=== PATIENT | male | born 1930 | race Caucasian/White ===

== ENCOUNTER 2016-07-29 13:47 | Emergency (ER) | payer MEDICARE, BC ==
--- NOTE | 2016-07-29 14:31 | EDM.PDOC ---
ED HPI GENERAL MEDICAL PROBLEM - General Chief Complaint: Genitourinary Problem Stated Complaint: PT CAN NOT URINATE Time Seen by Provider: 07/29/16 14:30 Source of Information: Reports: Patient History Limitations: Reports: No Limitations - History of Present Illness INITIAL COMMENTS - FREE TEXT/NARRATIVE: History of present illness: []Patient has not been able to urinate since 11 PM today is feeling fullness in his abdomen. He denies any fevers, chills or back pain. This happened once before and he is had a catheter that he went home with. Review of systems: As per history of present illness and below otherwise all systems reviewed and negative. Past medical history: As per history of present illness and as reviewed below otherwise noncontributory. Surgical history: As per history of present illness and as reviewed below otherwise noncontributory. Social history: No reported history of drug or alcohol abuse. Family history: As per history of present illness and as reviewed below otherwise noncontributory. Physical exam: General: Well developed, well nourished in NAD HEENT: Atraumatic, normocephalic, pupils reactive, negative for conjunctival pallor or scleral icterus, mucous membranes moist, throat clear, neck supple, nontender, trachea midline. Lungs: Clear to auscultation, breath sounds equal bilaterally, chest nontender. Heart: S1S2, regular, negative for clicks, rubs, or JVD. Abdomen: Soft, nondistended, lower abdominal tenderness without rebound or guarding. Negative for masses or hepatosplenomegaly. Negative for costovertebral tenderness. Pelvis: Stable nontender. Genitourinary: Deferred. Rectal: Deferred. Extremities: Atraumatic, negative for cords or calf pain. Neurovascular unremarkable. Neuro: Awake, alert, oriented. Cranial nerves II through XII unremarkable. Cerebellum unremarkable. Motor and sensory unremarkable throughout. Exam nonfocal. Diagnostics: []UA Therapeutics: []Castellon placed Impression: []Urinary retention Plan: []DC with Castellon follow-up with [facility] Definitive disposition and diagnosis as appropriate pending reevaluation and review of above. Lower Bladder Pain Score (Numeric/FACES): 4 - Related Data Allergies Allergy/AdvReac Type Severity Reaction Status Date / Time hydroxychloroquine sulfate Allergy Hives Verified 07/29/16 14:05 [From Plaquenil] rivaroxaban [From Xarelto] Allergy Shortness Verified 07/29/16 14:05 of Breath Sulfa (Sulfonamide Allergy Hives Verified 07/29/16 14:05 Antibiotics) Home Meds: Home Meds Aspirin 81 mg PO DAILY 05/21/13 [History] Folic Acid 1 mg PO DAILY 05/21/13 [History] Latanoprost [Xalatan 0.005% Ophth Soln] 1 drop OP BEDTIME 05/21/13 [History] Methotrexate Sodium/PF [Methotrexate 50 mg/2 ml Vial] 8 mg PO Q7D 05/21/13 [ History] Multivitamin [Multi-Vitamin Daily] 1 each PO DAILY 05/21/13 [History] Sennosides [Perdiem] 15 mg PO BID 05/21/13 [History] Torsemide [Demadex] 20 mg PO DAILY 05/21/13 [History] atorvaSTATin [Lipitor] 5 mg PO DAILY 05/21/13 [History] Budesonide/Formoterol [Symbicort 160-4.5 MCG] 2 inh IH BID PRN 09/20/14 [History ] Carvedilol [Coreg] 3.125 mg PO BID 09/20/14 [History] Docusate Sodium [Colace] 100 mg PO BID #60 cap 05/03/15 [Rx] Hydrocort/Neomycin/Polymyxin B [Cortisporin Otic Soln] 10 ml .XX TID #1 bottle 11/11/15 [Rx] Acetaminophen [Tylenol Extra Strength] 1,000 mg PO Q6H PRN #40 tablet 11/16/15 [ Rx] Allopurinol [Zyloprim] 1 tab PO DAILY 11/16/15 [History] Amitriptyline [Elavil] 50 mg PO DAILY 11/16/15 [History] Ibuprofen [Motrin] 800 mg PO Q8H PRN #30 tablet 11/16/15 [Rx] Brimonidine Tartrate [Alphagan P 0.1% Ophth Soln] 1 drop EYERT DAILY 11/17/15 [ History] Neomycin/Polymyxin B Sulf/HC [Xrhnmhar-Okavetvyf-Hz Ear Soln] 3 drop EARRT TID 11/17/15 [History] Acetaminophen/HYDROcodone [[place] 325-5 MG] 1 tab PO Q4H #10 tablet 11/19/15 [Rx] Blood Sugar Diagnostic [Test Strips] 1 each TID #50 strip 11/19/15 [Rx] Blood-Glucose Meter [Blood Glucose Monitor] 1 each TID #1 kit 11/19/15 [Rx] Lancets [Blood Lancets] 1 each TID #50 each 11/19/15 [Rx] Pen Needle, Diabetic [Pen Needle] 1 each TID #50 dis.needle 11/19/15 [Rx] Insulin Glarg,Human.Rec.Analog [LantUS Solostar] 26 units SUBCUT BEDTIME [History] Levothyroxine 0.1 mcg PO ACBREAKFAST 07/29/16 [History] Past Medical History HEENT History: Reports: Cataract, Hard of Hearing, Impaired Vision Other HEENT History: right ear infection Cardiovascular History: Reports: Hypertension, [place] Other Cardiovascular History: chest pains, CHF Respiratory History: Reports: Sleep Apnea Gastrointestinal History: Reports: Chronic Constipation Other Gastrointestinal History: gastroenteritis Genitourinary History: Reports: None Other Genitourinary History: renal failure syndrome Musculoskeletal History: Reports: Back Pain, Chronic Neurological History: Reports: None Other Neuro History: dementia-- no work up done yet Psychiatric History: Reports: None Endocrine/Metabolic History: Reports: Hypothyroidism Hematologic History: Reports: None Immunologic History: Reports: None Oncologic (Cancer) History: Reports: None Dermatologic History: Reports: None - Infectious Disease History Infectious Disease History: Reports: Chicken Pox, Measles, Mumps - Past Surgical History Head Surgeries/Procedures: Reports: None HEENT Surgical History: Reports: Cataract Surgery Cardiovascular Surgical History: Reports: None Male Surgical History: Reports: None Musculoskeletal Surgical History: Reports: Knee Replacement, Other (See Below) Social & Family History - Family History Family Medical History: Noncontributory - Tobacco Use Smoking Status *Q: Never Smoker Years of Tobacco use: 30 Packs/Tins Daily: 1 Used Tobacco, but Quit: Yes Month Tobacco Last Used: 40 yrs ago Second Hand Smoke Exposure: No - Caffeine Use Caffeine Use: Reports: None - Alcohol Use Days Per Week of Alcohol Use: 0 - Recreational Drug Use Recreational Drug Use: No ED ROS GENERAL - Review of Systems Review Of Systems: See Below ED EXAM, RENAL/ - Physical Exam Exam: See Below (See history of present illness) Course - Vital Signs Last Recorded V/S: Last Vital Signs Temp 36.1 C 07/29/16 14:04 Pulse 60 07/29/16 14:04 Resp 18 07/29/16 14:04 BP 164/78 H 07/29/16 14:04 Pulse Ox 93 L 07/29/16 14:04 - Orders/Labs/Meds Orders: Active Orders 24 hr Category Date Time Status Castellon Catheter Insertion [Insert Urinary Catheter] [OM. Care 07/29/16 14:30 Ordered PC] Q24H Urinary Catheter Assessment [RC] ASDIRECTED Care 07/29/16 14:31 Active Labs: Laboratory Tests 07/29/16 Range/Units 15:30 Urine Color YELLOW Urine Appearance CLEAR Urine pH 5.0 (5.0-8.0) Ur Specific [place] 1.010 (1.001-1.035) Urine Protein NEGATIVE (NEGATIVE) mg/dL Urine Glucose (UA) NEGATIVE (NEGATIVE) mg/dL Urine Ketones NEGATIVE (NEGATIVE) mg/dL Urine Occult Blood NEGATIVE (NEGATIVE) Urine Nitrite NEGATIVE (NEGATIVE) Urine Bilirubin NEGATIVE (NEGATIVE) Urine Urobilinogen 0.2 (<2.0) EU/dL Ur Leukocyte Esterase NEGATIVE (NEGATIVE) Urine RBC 0-1 (0-2/HPF) Urine WBC 0-1 (0-5/HPF) Ur Epithelial Cells RARE (NONE-FEW) Urine Bacteria RARE (NEGATIVE) Departure - Departure Time of Disposition: 15:50 Disposition: Home, Self-Care 01 Condition: good Clinical Impression: Urinary retention - Discharge Information Referrals: PCP,None [Primary Care Provider] - Forms: ED Department Discharge Additional Instructions: The following information is given to patients seen in the emergency department who are being discharged to home. This information is to outline your options for follow-up care. We provide all patients seen in our emergency department with a follow-up referral. The need for follow-up, as well as the timing and circumstances, are variable depending upon the specifics of your emergency department visit. If you don't have a primary care physician on staff, we will provide you with a referral. We always advise you to contact your personal physician following an emergency department visit to inform them of the circumstance of the visit and for follow-up with them and/or the need for any referrals to a consulting specialist. The emergency department will also refer you to a specialist when appropriate. This referral assures that you have the opportunity for follow-up care with a specialist. All of these measure are taken in an effort to provide you with optimal care, which includes your follow-up. Under all circumstances we always encourage you to contact your private physician who remains a resource for coordinating your care. When calling for follow-up care, please make the office aware that this follow-up is from your recent emergency room visit. If for any reason you are refused follow-up, please contact the [facility] Emergency Department at and asked to speak to the emergency department charge nurse. Follow-up with Dr. Gonzales. [facility] Specialty Care - Urology [address] [place] [address] - My Orders Last 24 Hours: My Active Orders 07/29/16 14:30 Castellon Catheter Insertion [Insert Urinary Catheter] [OM.PC] Q24H 07/29/16 14:31 Urinary Catheter Assessment [RC] ASDIRECTED - Assessment/Plan Last 24 Hours: My Active Orders 07/29/16 14:30 Castellon Catheter Insertion [Insert Urinary Catheter] [OM.PC] Q24H 07/29/16 14:31 Urinary Catheter Assessment [RC] ASDIRECTED
[2016-07-29 16:22] VITALS: BP 152/67
== END 2016-07-29 16:21 | disposition home or self-care (01) ==
LOC: MW.ED 13:47
DX: R33.9 Retention of urine, unspecified (principal); I25.2 Old myocardial infarction; I11.0 Hypertensive heart disease with heart failure; I50.9 Heart failure, unspecified; E03.9 Hypothyroidism, unspecified; Z98.49 Cataract extraction status, unspecified eye; Z96.659 Presence of unspecified artificial knee joint; Z79.4 Long term (current) use of insulin; Z79.82 Long term (current) use of aspirin; Z79.899 Other long term (current) drug therapy; Z88.2 Allergy status to sulfonamides; Z88.8 Allergy status to other drugs, medicaments and biological substances
CPT/HCPCS: 81001; 99282; 99283

== ENCOUNTER 2016-08-04 16:08 | Emergency (ER) | payer MEDICARE, BC ==
--- NOTE | 2016-08-04 16:31 | EDM.PDOC ---
ED HPI GENERAL MEDICAL PROBLEM - General Chief Complaint: Genitourinary Problem Stated Complaint: CANT USE THE BATHROOM Time Seen by Provider: 08/04/16 16:28 Source of Information: Reports: Patient - History of Present Illness INITIAL COMMENTS - FREE TEXT/NARRATIVE: HISTORY AND PHYSICAL: History of present illness: []Patient presents with urinary retention, he was seen a week ago with similar complaint and has since followed with urology twice over the last week, ultimately catheter was removed and he was able to void on his own over the last 48 hours. However at 11 AM today was last time he urinated he feels as if he has to go and as some urgency and pressure sensation but is unable to urinate. Dr. Fink is noted to have placed him on Flomax 0.8 mg daily at bedtime as well as Cipro 500 mg by mouth twice a day. He has had a prostatectomy previously also performed by [facility]ks in the remote past. He has follow-up scheduled with Dr. Fink for Saturday morning for circumcision as he has a known phimosis No fever nausea vomiting chills sweats denies new medications or over-the- counter decongestants Review of systems: As per history of present illness and below otherwise all systems reviewed and negative. Past medical history: As per history of present illness and as reviewed below otherwise noncontributory. Surgical history: As per history of present illness and as reviewed below otherwise noncontributory. Social history: No reported history of drug or alcohol abuse. Family history: As per history of present illness and as reviewed below otherwise noncontributory. Physical exam: HEENT: Atraumatic, normocephalic, pupils reactive, negative for conjunctival pallor or scleral icterus, mucous membranes moist, throat clear, neck supple, nontender, trachea midline. Lungs: Clear to auscultation, breath sounds equal bilaterally, chest nontender. Heart: S1S2, regular, negative for clicks, rubs, or JVD. Abdomen: Soft, nondistended, nontender. Negative for masses or hepatosplenomegaly. Negative for costovertebral tenderness. Pelvis: Stable nontender. Genitourinary: Deferred. Rectal: Deferred. Extremities: Atraumatic, negative for cords or calf pain. Neurovascular unremarkable. Neuro: Awake, alert, oriented. Cranial nerves II through XII unremarkable. Cerebellum unremarkable. Motor and sensory unremarkable throughout. Exam nonfocal. Diagnostics: []Clear urinalysis from 07/29 on file UA with cultures performed Therapeutics: []Castellon catheter placed with 600 mL of Impression: []Urine retention likely secondary to /or complicated by phimosis Definitive disposition and diagnosis as appropriate pending reevaluation and review of above. penile area Pain Score (Numeric/FACES): 5 - Related Data Allergies Allergy/AdvReac Type Severity Reaction Status Date / Time hydroxychloroquine sulfate Allergy Hives Verified 08/04/16 16:22 [From Plaquenil] rivaroxaban [From Xarelto] Allergy Shortness Verified 08/04/16 16:22 of Breath Sulfa (Sulfonamide Allergy Hives Verified 08/04/16 16:22 Antibiotics) Home Meds: Home Meds Aspirin 81 mg PO DAILY 05/21/13 [History] Folic Acid 1 mg PO DAILY 05/21/13 [History] Latanoprost [Xalatan 0.005% Ophth Soln] 1 drop OP BEDTIME 05/21/13 [History] Methotrexate Sodium/PF [Methotrexate 50 mg/2 ml Vial] 8 mg PO Q7D 05/21/13 [ History] Multivitamin [Multi-Vitamin Daily] 1 each PO DAILY 05/21/13 [History] Torsemide [Demadex] 20 mg PO DAILY 05/21/13 [History] atorvaSTATin [Lipitor] 5 mg PO DAILY 05/21/13 [History] Budesonide/Formoterol [Symbicort 160-4.5 MCG] 2 inh IH BID PRN 09/20/14 [History ] Carvedilol [Coreg] 3.125 mg PO BID 09/20/14 [History] Hydrocort/Neomycin/Polymyxin B [Cortisporin Otic Soln] 10 ml .XX TID #1 bottle 11/11/15 [Rx] Acetaminophen [Tylenol Extra Strength] 1,000 mg PO Q6H PRN #40 tablet 11/16/15 [ Rx] Allopurinol [Zyloprim] 1 tab PO DAILY 11/16/15 [History] Amitriptyline [Elavil] 50 mg PO DAILY 11/16/15 [History] Ibuprofen [Motrin] 800 mg PO Q8H PRN #30 tablet 11/16/15 [Rx] Brimonidine Tartrate [Alphagan P 0.1% Ophth Soln] 1 drop EYERT DAILY 11/17/15 [ History] Neomycin/Polymyxin B Sulf/HC [Rpimltmi-Rmnefliei-Pn Ear Soln] 3 drop EARRT TID 11/17/15 [History] Acetaminophen/HYDROcodone [[place] 325-5 MG] 1 tab PO Q4H #10 tablet 11/19/15 [Rx] Blood Sugar Diagnostic [Test Strips] 1 each TID #50 strip 11/19/15 [Rx] Blood-Glucose Meter [Blood Glucose Monitor] 1 each TID #1 kit 11/19/15 [Rx] Lancets [Blood Lancets] 1 each TID #50 each 11/19/15 [Rx] Pen Needle, Diabetic [Pen Needle] 1 each TID #50 dis.needle 11/19/15 [Rx] Insulin Glarg,Human.Rec.Analog [LantUS Solostar] 26 units SUBCUT BEDTIME [History] Levothyroxine 0.1 mcg PO ACBREAKFAST 07/29/16 [History] Ciprofloxacin [Ciprofloxacin HCl] 500 mg PO BID 08/04/16 [History] Fluticasone Propionate [Children's Flonase Allergy Rlf] 2 spray NS DAILY [History] Lisinopril 5 mg PO DAILY 08/04/16 [History] Losartan [Cozaar] 100 mg PO DAILY 08/04/16 [History] Tamsulosin [Flomax] 2 tab PO BEDTIME 08/04/16 [History] Past Medical History HEENT History: Reports: Cataract, Hard of Hearing, Impaired Vision Other HEENT History: right ear infection Cardiovascular History: Reports: Hypertension, [place] Other Cardiovascular History: chest pains, CHF Respiratory History: Reports: Sleep Apnea Gastrointestinal History: Reports: Chronic Constipation Other Gastrointestinal History: gastroenteritis Genitourinary History: Reports: None Other Genitourinary History: renal failure syndrome Musculoskeletal History: Reports: Back Pain, Chronic Neurological History: Reports: None Other Neuro History: dementia-- no work up done yet Psychiatric History: Reports: None Endocrine/Metabolic History: Reports: Hypothyroidism Hematologic History: Reports: None Immunologic History: Reports: None Oncologic (Cancer) History: Reports: None Dermatologic History: Reports: None - Infectious Disease History Infectious Disease History: Reports: Chicken Pox, Measles, Mumps - Past Surgical History Head Surgeries/Procedures: Reports: None HEENT Surgical History: Reports: Cataract Surgery Cardiovascular Surgical History: Reports: None Male Surgical History: Reports: None Musculoskeletal Surgical History: Reports: Knee Replacement, Other (See Below) Social & Family History - Family History Family Medical History: Noncontributory - Tobacco Use Smoking Status *Q: Never Smoker Years of Tobacco use: 30 Packs/Tins Daily: 1 Used Tobacco, but Quit: Yes Month Tobacco Last Used: 40 yrs ago Second Hand Smoke Exposure: No - Caffeine Use Caffeine Use: Reports: None - Alcohol Use Days Per Week of Alcohol Use: 0 - Recreational Drug Use Recreational Drug Use: No ED ROS GENERAL - Review of Systems Review Of Systems: ROS reveals no pertinent complaints other than HPI. ED EXAM, GENERAL - Physical Exam Exam: See Below Course - Vital Signs Last Recorded V/S: Last Vital Signs Temp 36.4 C 08/04/16 16:22 Pulse 66 08/04/16 16:22 Resp 20 08/04/16 16:22 BP 150/67 H 08/04/16 16:22 Pulse Ox 93 L 08/04/16 16:22 - Orders/Labs/Meds Orders: Active Orders 24 hr Category Date Time Status CULTURE URINE [RM] Stat Lab 08/04/16 16:47 Ordered UA W/MICROSCOPIC [URIN] Stat Lab 08/04/16 16:47 Ordered Departure - Departure Time of Disposition: 16:48 Disposition: Home, Self-Care 01 Condition: Good Clinical Impression: Urinary retention - Discharge Information Referrals: PCP,None [Primary Care Provider] - Forms: ED Department Discharge Additional Instructions: Follow-up with Dr. Fink urologist as scheduled Saturday for continued management Return if symptoms persist or worsen in the interim for new concerning symptoms develop Continue all current medications as prescribed The following information is given to patients seen in the emergency department who are being discharged to home. This information is to outline your options for follow-up care. We provide all patients seen in our emergency department with a follow-up referral. The need for follow-up, as well as the timing and circumstances, are variable depending upon the specifics of your emergency department visit. If you don't have a primary care physician on staff, we will provide you with a referral. We always advise you to contact your personal physician following an emergency department visit to inform them of the circumstance of the visit and for follow-up with them and/or the need for any referrals to a consulting specialist. The emergency department will also refer you to a specialist when appropriate. This referral assures that you have the opportunity for follow-up care with a specialist. All of these measure are taken in an effort to provide you with optimal care, which includes your follow-up. Under all circumstances we always encourage you to contact your private physician who remains a resource for coordinating your care. When calling for follow-up care, please make the office aware that this follow-up is from your recent emergency room visit. If for any reason you are refused follow-up, please contact the [facility] emergency department at and asked to speak to the emergency department charge nurse. - My Orders Last 24 Hours: My Active Orders 08/04/16 16:47 CULTURE URINE [RM] Stat UA W/MICROSCOPIC [URIN] Stat - Assessment/Plan Last 24 Hours: My Active Orders 08/04/16 16:47 CULTURE URINE [RM] Stat UA W/MICROSCOPIC [URIN] Stat
[2016-08-04 17:14] VITALS: BP 136/69
== END 2016-08-04 17:03 | disposition home or self-care (01) ==
LOC: MW.ED 16:08
DX: R33.9 Retention of urine, unspecified (principal); I11.0 Hypertensive heart disease with heart failure; I25.2 Old myocardial infarction; H54.7 Unspecified visual loss; E03.9 Hypothyroidism, unspecified; Z88.2 Allergy status to sulfonamides; Z79.899 Other long term (current) drug therapy; Z79.82 Long term (current) use of aspirin; Z88.8 Allergy status to other drugs, medicaments and biological substances; Z79.4 Long term (current) use of insulin; Z98.49 Cataract extraction status, unspecified eye; Z96.659 Presence of unspecified artificial knee joint; Z96.0 Presence of urogenital implants; I50.9 Heart failure, unspecified
CPT/HCPCS: 51702; 81001; 87086; 99283

== ENCOUNTER 2018-05-01 22:45 | Emergency (ER) | payer MEDICARE, BC ==
[2018-05-01 22:58] VITALS: BP 175/69
--- NOTE | 2018-05-01 23:03 | EDM.PDOC ---
ED HPI GENERAL MEDICAL PROBLEM - General Chief Complaint: Genitourinary Problem Stated Complaint: PT IS POSSIBLY BLEEDING FROM HIS BLADDER Time Seen by Provider: 05/01/18 22:55 - History of Present Illness INITIAL COMMENTS - FREE TEXT/NARRATIVE: HISTORY AND PHYSICAL: History of present illness: The patient is an 87-year-old male with a history of hypertension hypothyroidism hypercholesterolemia who had a TURP procedure done many years ago and has had no issues with his bladder or prostate but knows Dr. Gonzales and has followed with him in the past and also goes to her infusion center for rheumatoid arthritis medications and presents tonight with passing blood in his urine for the first time. The patient says that earlier today he had a normal day and has had no fevers chills abdominal pain nausea vomiting shortness of breath or fevers. He's had no flank pain. He's had normal urine output all day and this evening when he went to go to the bathroom he passed blood. There were no clots and he does not feel like he has has any urinary retention. He has no suprapubic tenderness and he said that when he passed the urine with the blood it was not painful. He has no testicular pain or swelling and actually has no systemic complaints currently and is only here for passing the blood in the urine. The patient only takes an aspirin at home and no other anticoagulation therapy. Review of systems: As per history of present illness and below otherwise all systems reviewed and negative. Past medical history: As per history of present illness and as reviewed below otherwise noncontributory. Surgical history: As per history of present illness and as reviewed below otherwise noncontributory. Social history: No reported history of drug or alcohol abuse. Family history: As per history of present illness and as reviewed below otherwise noncontributory. Physical exam: General: Well-developed well-nourished overweight man who is nontoxic and hard of hearing. Vital signs are noted by me HEENT: Atraumatic, normocephalic,negative for conjunctival pallor or scleral icterus, mucous membranes moist, throat clear, neck supple, nontender, trachea midline. Lungs: Clear to auscultation, breath sounds equal bilaterally, chest nontender. Heart: S1S2, regular rate and rhythm no overt murmurs Abdomen: Soft, nondistended, nontender. Negative for masses or hepatosplenomegaly. Negative for costovertebral tenderness. There is no tenderness in the suprapubic area Pelvis: Stable nontender. Genitourinary: Testicles are descended bilaterally and there is no evidence of any skin changes or erythema seen in the region. There is a small area of blood in his underwear which is dark in color and dried. Rectal: Deferred. Extremities: Atraumatic, negative for cords or calf pain. Neurovascular unremarkable. Neuro: Awake, alert, oriented. Cranial nerves II through XII unremarkable. Cerebellum unremarkable. Motor and sensory unremarkable throughout. Exam nonfocal. Diagnostics: CBC CMP INR UA with reflex culture bladder scan Therapeutics: Patient's urine here in the ED is clear yellow and we will do a post void residual bladder scan. Bladder scan revealed a post void residual of 43 mL All testing results were discussed with the patient including the BUN and creatinine are 42/1.6. I do not have a baseline for that and is white cell count is slightly elevated at 13. I will discuss this case with Dr. Gonzales 2344: Case was discussed with Dr. Gonzales and he is aware of the lab tests and will follow him in the clinic and does not want to do any outpatient labs. Patient is aware of this and we will discharge home. Impression: Episode of hematuria resolved Definitive disposition and diagnosis as appropriate pending reevaluation and review of above. no pain Pain Score (Numeric/FACES): 0 - Related Data Allergies Allergy/AdvReac Type Severity Reaction Status Date / Time hydroxychloroquine sulfate Allergy Hives Verified 08/04/16 16:22 [From Plaquenil] rivaroxaban [From Xarelto] Allergy Shortness Verified 08/04/16 16:22 of Breath Sulfa (Sulfonamide Allergy Hives Verified 08/04/16 16:22 Antibiotics) Home Meds: Home Meds Aspirin 81 mg PO DAILY 05/21/13 [History] Folic Acid 1 mg PO DAILY 05/21/13 [History] Latanoprost [Xalatan 0.005% Ophth Soln] 1 drop OP BEDTIME 05/21/13 [History] Methotrexate Sodium/PF [Methotrexate 50 mg/2 ml Vial] 8 mg PO Q7D 05/21/13 [ History] Multivitamin [Multi-Vitamin Daily] 1 each PO DAILY 05/21/13 [History] Torsemide [Demadex] 20 mg PO DAILY 05/21/13 [History] atorvaSTATin [Lipitor] 5 mg PO DAILY 05/21/13 [History] Budesonide/Formoterol [Symbicort 160-4.5 MCG] 2 inh IH BID PRN 09/20/14 [History ] Carvedilol [Coreg] 3.125 mg PO BID 09/20/14 [History] Hydrocort/Neomycin/Polymyxin B [Cortisporin Otic Soln] 10 ml .XX TID #1 bottle 11/11/15 [Rx] Acetaminophen [Tylenol Extra Strength] 1,000 mg PO Q6H PRN #40 tablet 11/16/15 [ Rx] Allopurinol [Zyloprim] 1 tab PO DAILY 11/16/15 [History] Amitriptyline [Elavil] 50 mg PO DAILY 11/16/15 [History] Ibuprofen [Motrin] 800 mg PO Q8H PRN #30 tablet 11/16/15 [Rx] Brimonidine Tartrate [Alphagan P 0.1% Ophth Soln] 1 drop EYERT DAILY 11/17/15 [ History] Neomycin/Polymyxin B Sulf/HC [Hzgtmnrk-Eynqceidd-Im Ear Soln] 3 drop EARRT TID 11/17/15 [History] Acetaminophen/HYDROcodone [[place] 325-5 MG] 1 tab PO Q4H #10 tablet 11/19/15 [Rx] Blood Sugar Diagnostic [Test Strips] 1 each TID #50 strip 11/19/15 [Rx] Blood-Glucose Meter [Blood Glucose Monitor] 1 each TID #1 kit 11/19/15 [Rx] Lancets [Blood Lancets] 1 each TID #50 each 11/19/15 [Rx] Pen Needle, Diabetic [Pen Needle] 1 each TID #50 dis.needle 11/19/15 [Rx] Insulin Glarg,Human.Rec.Analog [LantUS Solostar] 26 units SUBCUT BEDTIME [History] Levothyroxine 0.1 mcg PO ACBREAKFAST 07/29/16 [History] Ciprofloxacin [Ciprofloxacin HCl] 500 mg PO BID 08/04/16 [History] Fluticasone Propionate [Children's Flonase Allergy Rlf] 2 spray NS DAILY [History] Lisinopril 5 mg PO DAILY 08/04/16 [History] Losartan [Cozaar] 100 mg PO DAILY 08/04/16 [History] Tamsulosin [Flomax] 2 tab PO BEDTIME 08/04/16 [History] Past Medical History HEENT History: Reports: Cataract, Hard of Hearing, Impaired Vision Other HEENT History: right ear infection Cardiovascular History: Reports: Hypertension, OR Other Cardiovascular History: chest pains, CHF Respiratory History: Reports: Sleep Apnea Other Respiratory History: on O2 inhalation @ home 3lpm @ night Gastrointestinal History: Reports: Chronic Constipation Other Gastrointestinal History: gastroenteritis Genitourinary History: Reports: None Other Genitourinary History: renal failure syndrome Musculoskeletal History: Reports: Back Pain, Chronic Neurological History: Reports: None Other Neuro History: dementia-- no work up done yet Psychiatric History: Reports: None Endocrine/Metabolic History: Reports: Hypothyroidism Hematologic History: Reports: None Immunologic History: Reports: None Oncologic (Cancer) History: Reports: None Dermatologic History: Reports: None - Infectious Disease History Infectious Disease History: Reports: Chicken Pox, Measles, Mumps - Past Surgical History Head Surgeries/Procedures: Reports: None HEENT Surgical History: Reports: Cataract Surgery Cardiovascular Surgical History: Reports: None Male Surgical History: Reports: None Musculoskeletal Surgical History: Reports: Knee Replacement, Other (See Below) Social & Family History - Family History Family Medical History: Noncontributory - Caffeine Use Caffeine Use: Reports: None ED ROS GENERAL - Review of Systems Review Of Systems: ROS reveals no pertinent complaints other than HPI. ED EXAM, GENERAL - Physical Exam Exam: See Below (See dictation) Course - Vital Signs Last Recorded V/S: Last Vital Signs Temp 36.3 C 05/01/18 22:55 Pulse 68 05/01/18 22:55 Resp 21 H 05/01/18 22:55 BP 175/69 H 05/01/18 22:55 Pulse Ox 94 L 05/01/18 22:55 - Orders/Labs/Meds Orders: Active Orders 24 hr Category Date Time Status Bladder Scan [RC] ASDIRECTED Care 05/01/18 23:02 Active Labs: Laboratory Tests 05/01/18 05/01/18 05/01/18 Range/Units 23:05 23:12 23:12 WBC 13.51 H (4.0-11.0) K/uL RBC 3.73 L (4.50-5.90) M/uL Hgb 11.9 L (13.0-17.0) g/dL Hct 35.8 L (38.0-50.0) % MCV 96.0 (80.0-98.0) fL MCH 31.9 (27.0-32.0) pg MCHC 33.2 (31.0-37.0) g/dL RDW Std Deviation 51.6 (28.0-62.0) fl RDW Coeff of Linus 15 (11.0-15.0) % Plt Count 215 (150-400) K/uL MPV 10.00 (7.40-12.00) fL Neut % (Auto) 32.9 L (48.0-80.0) % Lymph % (Auto) 55.7 H (16.0-40.0) % [place] % (Auto) 6.2 (0.0-15.0) % Eos % (Auto) 5.0 (0.0-7.0) % Baso % (Auto) 0.2 (0.0-1.5) % Neut # (Auto) 4.4 (1.4-5.7) K/uL Lymph # (Auto) 7.5 H (0.6-2.4) K/uL [place] # (Auto) 0.8 (0.0-0.8) K/uL Eos # (Auto) 0.7 (0.0-0.7) K/uL Baso # (Auto) 0.0 (0.0-0.1) K/uL Nucleated RBC % 0.0 /100WBC Nucleated RBCs # 0 K/uL INR 1.06 Sodium (136-148) mmol/L Potassium (3.5-5.1) mmol/L Chloride (98-107) mmol/L Carbon Dioxide (21.0-32.0) mmol/L BUN (7.0-18.0) mg/dL Creatinine (0.8-1.3) mg/dL Est Cr Clr Drug Dosing mL/min Estimated GFR (MDRD) ml/min Glucose (74-106) mg/dL Calcium (8.5-10.1) mg/dL Total Bilirubin (0.2-1.0) mg/dL AST (15-37) IU/L ALT (14-63) IU/L Alkaline Phosphatase (46-116) U/L Total Protein (6.4-8.2) g/dL Albumin (3.4-5.0) g/dL Globulin (2.6-4.0) g/dL Albumin/Globulin Ratio (0.9-1.6) Urine Color YELLOW Urine Appearance CLEAR Urine pH 5.5 (5.0-8.0) Ur Specific [place] 1.020 (1.001-1.035) Urine Protein NEGATIVE (NEGATIVE) mg/dL Urine Glucose (UA) NEGATIVE (NEGATIVE) mg/dL Urine Ketones NEGATIVE (NEGATIVE) mg/dL Urine Occult Blood NEGATIVE (NEGATIVE) Urine Nitrite NEGATIVE (NEGATIVE) Urine Bilirubin NEGATIVE (NEGATIVE) Urine Urobilinogen 0.2 (<2.0) EU/dL Ur Leukocyte Esterase NEGATIVE (NEGATIVE) 05/01/18 Range/Units 23:12 WBC (4.0-11.0) K/uL RBC (4.50-5.90) M/uL Hgb (13.0-17.0) g/dL Hct (38.0-50.0) % MCV (80.0-98.0) fL MCH (27.0-32.0) pg MCHC (31.0-37.0) g/dL RDW Std Deviation (28.0-62.0) fl RDW Coeff of Linus (11.0-15.0) % Plt Count (150-400) K/uL MPV (7.40-12.00) fL Neut % (Auto) (48.0-80.0) % Lymph % (Auto) (16.0-40.0) % [place] % (Auto) (0.0-15.0) % Eos % (Auto) (0.0-7.0) % Baso % (Auto) (0.0-1.5) % Neut # (Auto) (1.4-5.7) K/uL Lymph # (Auto) (0.6-2.4) K/uL [place] # (Auto) (0.0-0.8) K/uL Eos # (Auto) (0.0-0.7) K/uL Baso # (Auto) (0.0-0.1) K/uL Nucleated RBC % /100WBC Nucleated RBCs # K/uL INR Sodium 138 (136-148) mmol/L Potassium 4.6 (3.5-5.1) mmol/L Chloride 104 (98-107) mmol/L Carbon Dioxide 24.3 (21.0-32.0) mmol/L BUN 42 H (7.0-18.0) mg/dL Creatinine 1.6 H (0.8-1.3) mg/dL Est Cr Clr Drug Dosing 35.70 mL/min Estimated GFR (MDRD) 41.1 ml/min Glucose 118 H (74-106) mg/dL Calcium 10.2 H (8.5-10.1) mg/dL Total Bilirubin 0.3 (0.2-1.0) mg/dL AST 15 (15-37) IU/L ALT 16 (14-63) IU/L Alkaline Phosphatase 105 (46-116) U/L Total Protein 7.4 (6.4-8.2) g/dL Albumin 3.5 (3.4-5.0) g/dL Globulin 3.9 (2.6-4.0) g/dL Albumin/Globulin Ratio 0.9 (0.9-1.6) Urine Color Urine Appearance Urine pH (5.0-8.0) Ur Specific [place] (1.001-1.035) Urine Protein (NEGATIVE) mg/dL Urine Glucose (UA) (NEGATIVE) mg/dL Urine Ketones (NEGATIVE) mg/dL Urine Occult Blood (NEGATIVE) Urine Nitrite (NEGATIVE) Urine Bilirubin (NEGATIVE) Urine Urobilinogen (<2.0) EU/dL Ur Leukocyte Esterase (NEGATIVE) Departure - Departure Time of Disposition: 23:46 Disposition: Home, Self-Care 01 Condition: Good Clinical Impression: Hematuria Qualifiers: Hematuria type: unspecified type Qualified Code(s): R31.9 - Hematuria, unspecified - Discharge Information Referrals: PCP,None [Primary Care Provider] - Forms: ED Department Discharge Additional Instructions: The following information is given to patients seen in the emergency department who are being discharged to home. This information is to outline your options for follow-up care. We provide all patients seen in our emergency department with a follow-up referral. The need for follow-up, as well as the timing and circumstances, are variable depending upon the specifics of your emergency department visit. If you don't have a primary care physician on staff, we will provide you with a referral. We always advise you to contact your personal physician following an emergency department visit to inform them of the circumstance of the visit and for follow-up with them and/or the need for any referrals to a consulting specialist. The emergency department will also refer you to a specialist when appropriate. This referral assures that you have the opportunity for followup care with a specialist. All of these measure are taken in an effort to provide you with optimal care, which includes your followup. Under all circumstances we always encourage you to contact your private physician who remains a resource for coordinating your care. When calling for followup care, please make the office aware that this follow-up is from your recent emergency room visit. If for any reason you are refused follow-up, please contact the [facility] emergency department at and ask to speak to the emergency department charge nurse. [facility] [address] [place] [id number] Gonzales's office and schedule an outpatient follow-up as we discussed. These push hydration as you are dehydrated today and the labs and return to ER as needed and as discussed - My Orders Last 24 Hours: My Active Orders 05/01/18 23:02 Bladder Scan [RC] ASDIRECTED - Assessment/Plan Last 24 Hours: My Active Orders 05/01/18 23:02 Bladder Scan [RC] ASDIRECTED
== END 2018-05-02 00:19 | disposition home or self-care (01) ==
LOC: MW.ED 22:45
DX: R31.9 Hematuria, unspecified (principal); I10 Essential (primary) hypertension; I25.2 Old myocardial infarction; E03.9 Hypothyroidism, unspecified; Z88.8 Allergy status to other drugs, medicaments and biological substances; Z88.2 Allergy status to sulfonamides; Z79.82 Long term (current) use of aspirin; Z79.4 Long term (current) use of insulin; Z79.899 Other long term (current) drug therapy
CPT/HCPCS: 36415; 80053; 81003; 85025; 85610; 99283